=== PATIENT | male | born 1950 | race Caucasian/White ===

== ENCOUNTER → 2023-11-01 06:50 | Outpatient (REF) | payer MEDICARE, SELFPAY ==
[2023-11-01 10:39] LABS: PSA, Total - Diagnostic 3.53 ng/ml (0.0-4.0)
== END ==
LOC: HWLAB 06:50
PROVIDERS: ATTENDING PHYSICIAN Specialist; FAMILY PHYSICIAN Internal Medicine
DX: R97.20 Elevated prostate specific antigen [PSA] (principal)
CPT/HCPCS: 36415; 84153

== ENCOUNTER → 2024-02-21 07:35 | Outpatient (REF) | payer MEDICARE, SELFPAY | LOC: DHVS 07:35 | PROVIDERS: ATTENDING PHYSICIAN Surgery Vascular Surgery; FAMILY PHYSICIAN Internal Medicine | DX: I77.9 Disorder of arteries and arterioles, unspecified (principal) | CPT/HCPCS: 93922; 93925 ==

== ENCOUNTER → 2024-06-01 07:52 | Outpatient (REF) | payer MEDICARE, SELFPAY ==
[2024-06-01 10:08] LABS: ALT (SGPT) 33 U/L (0-50); AST (SGOT) 30 U/L (17-59); Albumin 4.1 g/dl (3.5-5.0); Alkaline Phosphatase 53 U/L (38-126); Blood Urea Nitrogen 51 mg/dl (9-20); Calcium 9.9 mg/dl (8.4-10.2); Carbon Dioxide 24 mmol/L (22-30); Chloride 101 mmol/L (98-107); Glucose 120 mg/dl (70-99); HDL Cholesterol 31 mg/dl; LDL Cholesterol, Calculated 49 mg/dl; Potassium 4.1 mmol/L (3.5-5.1); Sodium 138 mmol/L (135-145); Total Bilirubin 0.5 mg/dl (0.2-1.3); Total Cholesterol 115 mg/dl (50-199); Total Protein 6.6 g/dl (6.3-8.2); Triglyceride 176 mg/dl (10-149); Very Low Density Lipoprotein 35 mg/dl (0-30); eGFR 38.53
[2024-06-01 10:47] LABS: Microalbumin/creatinine Ratio 8.2 mg/g
[2024-06-01 12:17] LABS: Glycohemoglobin (HgbA1c) 7.1 % (4.0-5.6)
== END ==
LOC: HWLAB 07:52
PROVIDERS: ATTENDING PHYSICIAN Internal Medicine
DX: E11.59 Type 2 diabetes mellitus with other circulatory complications (principal)
CPT/HCPCS: 36415; 80053; 80061; 82043; 82570; 83036

== ENCOUNTER → 2024-08-22 08:40 | Outpatient (REF) | payer MEDICARE, SELFPAY | LOC: RAD 08:40 | PROVIDERS: ATTENDING PHYSICIAN Surgery Vascular Surgery; FAMILY PHYSICIAN Internal Medicine | DX: I73.9 Peripheral vascular disease, unspecified (principal) | CPT/HCPCS: 93922; 93925 ==

== ENCOUNTER → 2024-11-03 07:32 | Outpatient (REF) | payer MEDICARE, SELFPAY | LOC: RAD 07:32 | PROVIDERS: ATTENDING PHYSICIAN Registered Nurse; FAMILY PHYSICIAN Internal Medicine | DX: I73.9 Peripheral vascular disease, unspecified (principal) | CPT/HCPCS: 93922; 93925 ==

== ENCOUNTER → 2024-11-13 06:58 | Outpatient (REF) | payer MEDICARE, SELFPAY ==
[2024-11-13 09:47] LABS: ALT (SGPT) 55 U/L (0-50); AST (SGOT) 40 U/L (17-59); Albumin 4.5 g/dl (3.5-5.0); Alkaline Phosphatase 55 U/L (38-126); Blood Urea Nitrogen 42 mg/dl (9-20); Calcium 10.1 mg/dl (8.4-10.2); Carbon Dioxide 27 mmol/L (22-30); Chloride 105 mmol/L (98-107); Glucose 129 mg/dl (70-99); HDL Cholesterol 29 mg/dl; LDL Cholesterol, Calculated 62 mg/dl; Potassium 4.3 mmol/L (3.5-5.1); Sodium 143 mmol/L (135-145); Total Bilirubin 0.6 mg/dl (0.2-1.3); Total Cholesterol 133 mg/dl (50-199); Total Protein 7.1 g/dl (6.3-8.2); Triglyceride 212 mg/dl (10-149); Very Low Density Lipoprotein 42 mg/dl (0-30); eGFR 47.95
[2024-11-13 09:55] LABS: Microalbumin, Random Urine 0.7 mg/dl (0.6-1.7); Microalbumin/creatinine Ratio 7.3 mg/g
[2024-11-13 10:37] LABS: Glycohemoglobin (HgbA1c) 7.5 % (4.0-5.6)
== END ==
LOC: HWLAB 06:58
PROVIDERS: ATTENDING PHYSICIAN Internal Medicine
DX: E11.59 Type 2 diabetes mellitus with other circulatory complications (principal); I10 Essential (primary) hypertension
CPT/HCPCS: 36415; 80053; 80061; 82043; 82570; 83036

== ENCOUNTER 2024-12-04 06:49 | Day surgery (SDC) | payer MEDICARE, SELFPAY ==
[2024-12-04] VITALS (20 sets, daily range): BP systolic 89–151; BP diastolic 64–87; BMI 30.3
[2024-12-04 07:29] LABS: Glucose - Point of Care 141 mg/dl (70-99)
[2024-12-04 07:30] LABS: Hematocrit 42.2 % (39.0-52.0); Hemoglobin 14.2 g/dL (13.0-18.0); Mean Corp Hgb Conc. 33.6 g/dL (33.0-37.0); Mean Corpuscular Hgb 30.3 pg (27.0-31.0); Mean Corpuscular Volume 90.2 fL (80.0-94.0); Mean Platelet Volume 9.1 fL (7.4-10.4); Platelet Count 260 10^3/uL (130-400); Red Blood Cell Count 4.68 10^6/uL (4.70-6.10); Red Cell Dist. Width 12.3 % (11.5-14.5); White Blood Cell Count 8.6 10^3/uL (4.8-10.8)
--- NOTE | 2024-12-04 07:34 | W.SUR.PREOP ---
Pre-Operative Surgical Note
-
I have examined this patient prior to the performance of the scheduled procedure.
The patient's condition is unchanged from the time of the current History and
Physical and the patient is able to undergo the scheduled procedure.
[2024-12-04 07:40] LABS: INR 1.03; PT 13.8 Sec (11.4-14.6)
[2024-12-04 07:46] LABS: Blood Urea Nitrogen 30 mg/dl (9-20); Calcium 10.2 mg/dl (8.4-10.2); Carbon Dioxide 25 mmol/L (22-30); Chloride 108 mmol/L (98-107); Estimated Creatinine Clearance 56 ml/min; Glucose 144 mg/dl (70-99); Potassium 4.4 mmol/L (3.5-5.1); Sodium 142 mmol/L (135-145); eGFR 56.93
--- NOTE | 2024-12-04 09:32 | W.IMMPOSTOP ---
Surgical Immed Post Op Note
-
Primary Surgeon: Evelia
Assisting Surgeon: Fozia
Pre-op Diagnosis: R pop stent occlusion
Post-op Diagnosis: R pop stent occlusion
Procedure Performed: IVL/precinct police captain/stent right pop
Anesthesia Type: Sedation/local
Specimen / Cultures: None
Estimated Blood Loss: <20 cc
Complications: None
Operative Findings: Successful ivl/precinct police captain/stent right pop
--- NOTE | 2024-12-04 09:33 | OR.RPT ---
Operative Report
Operative Report
Date of Operation: 12/04/2024
Pre Op Diagnosis: Peripheral arterial occlusive disease with new segmental occlusion of right lower extremity popliteal artery stent
Post Op Diagnosis: Peripheral arterial occlusive disease with new segmental occlusion of right lower extremity popliteal artery stent
Procedure:
1.) Intravascular lithotripsy to calcified stenosis/occlusion of right popliteal artery stent (6 mm x 80 mm E8 shockwave balloon)
2.) Balloon angioplasty and stenting of right above-knee popliteal artery (6 mm x 5 cm Viabahn stent graft)
3.) Diagnostic aortobiiliac arteriogram
4.) Diagnostic right lower extremity arteriogram
5.) Ultrasound-guided percutaneous access to the left common femoral artery
Surgeon: Jone Altamirano III, MD
Membership Sales Representative: Shirin Marcelo MD PGY1
Anesthesia: Sedation with local
Fluoroscopy:
24.4 min
185 mGy
61.59 gy.cm2
Complications: None
Estimated Blood Loss: Less than 20 cc
History and Indications for Procedure: 74-year-old male with previous right lower extremity endovascular intervention. Recurrence of claudication symptoms. On surveillance duplex imaging he had segmental occlusion of his right popliteal artery
stents.
Procedure in Detail: Jayy Orta was correctly identified and placed supine on the operating table. After adequate induction of anesthesia the bilateral groins were prepped and draped in the usual sterile fashion. A timeout was performed with
the nursing and anesthesia staff confirming the patient's identity as well as the nature and laterality of the procedure.
The left common femoral artery was identified under ultrasound guidance. The artery was patent with some calcified plaque identified. The superior and inferior aspects of the femoral head were identified with radiographic guidance and marked at the
skin level. The proposed puncture site was infiltrated with local anesthesia. Under ultrasound guidance we accessed the left common femoral artery with a micropuncture needle and upsized to a 5 Fr sheath over a Issuuson wire. The wire and a Shepherds
hook flush catheter were advanced into the distal abdominal aorta and a diagnostic aorto-biiliac arteriogram was performed:
AORTO-ILIAC ARTERIOGRAM:
Aorta: Peripherally calcified. Patent with no stenosis identified
Right common iliac artery: Patent with no stenosis identified
Right external iliac artery: Patent with no stenosis identified
Left common iliac artery: Patent with no stenosis identified
Left external iliac artery: Patent with no stenosis identified
Under roadmap guidance using a Glidewire and the [employer] hook catheter we selected the right common iliac artery and then the external iliac artery. A catheter was tracked up and over the aortic bifurcation and placed in the distal external iliac
artery. A diagnostic right lower extremity arteriogram was then performed which demonstrated the following:
RIGHT LOWER EXTREMITY:
Common femoral artery: Patent with no stenosis identified
Profunda femoral artery: Patent with no stenosis identified
Superficial femoral artery: Patent with no stenosis identified
Popliteal artery: Stents identified in the above-knee popliteal segment and behind the knee. Segmental occlusion of stents above the knee popliteal artery. Significant calcification identified. Reconstitution of the popliteal artery behind and
below the knee.
Anterior tibial artery: Patent
Tibioperoneal trunk: Patent
Peroneal artery: Patent
Posterior tibial artery: Patent
ENDOVASCULAR INTERVENTION: Systemic heparin was administered. Exchanged out for a 6 Fr 45 cm sheath over a Storq wire. Selected the superficial femoral artery under roadmap guidance with Quickcross catheter and glidewire. Navigated through the SFA
to the popliteal artery stents. The popliteal stent occlusion was crossed with a Quickcross and Glidewire. The wire and catheter were advanced into the popliteal artery below the knee and subtraction angio confirmed proper position in the true
lumen. Exchanged out for a 0.018 wire. A 5 mm x 60 mm angioplasty balloon was placed across the occlusion under roadmap guidance. The balloon was inflated to nominal pressure and then deflated and removed over the wire. Subsequent arteriogram
demonstrated significant residual stenosis with a boulder of dense calcified plaque outside of the existing stent causing extrinsic compression on the stent focally. Due to the heavily calcified nature of the popliteal artery disease and in an
effort to modify the calcium to achieve maximum luminal gain with endovascular intervention I elected to proceed with intravascular lithotripsy. Exchanged out for a 0.[address] wire. A 6 mm x 80 mm Shockwave balloon was placed across the
stenosis under roadmap guidance. Alternating rounds of lithotripsy pulse delivery at sub-nominal pressure and angioplasty at nominal pressure was performed across the stenosis. In between rounds of pulse delivery and angioplasty the balloon was
deflated and repositioned under roadmap guidance. All 400 pulses were delivered. Subsequent arteriogram demonstrated improvement in luminal flow but residual plaque and stenosis remained. I then brought into position a 6 mm x 5 cm Viabahn stent
graft and positioned this across the residual stenosis under roadmap guidance. The stent was deployed and the delivery system removed over the wire. A 6 mm angioplasty balloon was used to aggressively profile the entire length of the Viabahn stent
graft at rated burst pressure.
COMPLETION ARTERIOGRAM: Good technical result. Patent popliteal artery stents with brisk flow. Mild residual stenosis identified in an area of dense calcification at the point of previous stent occlusion. Patent three-vessel tibial runoff.
Satisfied with this result we concluded the procedure. The sheath tip was pulled back into the left external iliac artery. The wire was removed. Protamine was administered. The sheath was secured in place with a plan to pull it in the recovery
area.
The patient tolerated the procedure well and was taken to the recovery area in stable condition.
Attestation: I was present and responsible for the entire procedure.
Signed:
Jone Altamirano III, MD
Vascular Surgery
[facility]
[2024-12-04 09:54] LABS: Glucose - Point of Care 127 mg/dl (70-99)
[2024-12-04] MEDS: NSS 1000 IV (10:57)
[2024-12-04 12:05] LABS: Glucose - Point of Care 83 mg/dl (70-99)
== END 2024-12-04 15:07 | disposition home or self-care (01) ==
LOC: CATH 06:49
PROVIDERS: ATTENDING PHYSICIAN Surgery Vascular Surgery; OTHER PHYSICIAN Student in an Organized Health Care Education/Training Program; PRIMARYCARE PHYSICIAN Internal Medicine
DX: I70.211 Atherosclerosis of native arteries of extremities with intermittent claudication, right leg (principal); T82.856D Stenosis of peripheral vascular stent, subsequent encounter; Y83.8 Other surgical procedures as the cause of abnormal reaction of the patient, or of later complication, without mention of misadventure at the time of the procedure; Z87.891 Personal history of nicotine dependence; Z95.820 Peripheral vascular angioplasty status with implants and grafts; I25.10 Atherosclerotic heart disease of native coronary artery without angina pectoris; E11.9 Type 2 diabetes mellitus without complications; Z79.02 Long term (current) use of antithrombotics/antiplatelets; Z79.82 Long term (current) use of aspirin; Z79.84 Long term (current) use of oral hypoglycemic drugs; Z79.899 Other long term (current) drug therapy; Z79.85 Long-term (current) use of injectable non-insulin antidiabetic drugs
CPT/HCPCS: C9765; 75625; 75716; 80048; 82962; 85027; 85610; C1725; C1769; C1874; C1894; Q9967

== ENCOUNTER → 2024-12-28 14:16 | Outpatient (REF) | payer MEDICARE, SELFPAY | LOC: RAD 14:16 | PROVIDERS: ATTENDING PHYSICIAN Surgery Vascular Surgery; FAMILY PHYSICIAN Internal Medicine | DX: I73.9 Peripheral vascular disease, unspecified (principal) | CPT/HCPCS: 93922; 93925 ==

== ENCOUNTER → 2025-04-17 08:59 | Outpatient (REF) | payer MEDICARE, SELFPAY | LOC: HWRCS 08:59 | PROVIDERS: ATTENDING PHYSICIAN Student in an Organized Health Care Education/Training Program; FAMILY PHYSICIAN Internal Medicine | DX: I35.0 Nonrheumatic aortic (valve) stenosis (principal) | CPT/HCPCS: 93306 ==

== ENCOUNTER → 2025-05-16 07:40 | Outpatient (REF) | payer MEDICARE, SELFPAY ==
[2025-05-16 10:30] LABS: Glycohemoglobin (HgbA1c) 6.8 % (4.0-5.6)
[2025-05-16 10:41] LABS: Microalb - Urine Creatinine 143.000 mg/dl
[2025-05-16 10:43] LABS: ALT (SGPT) 45 U/L (0-50); AST (SGOT) 44 U/L (17-59); Albumin 4.2 g/dl (3.5-5.0); Alkaline Phosphatase 38 U/L (38-126); Blood Urea Nitrogen 23 mg/dl (9-20); Calcium 10.2 mg/dl (8.4-10.2); Carbon Dioxide 25 mmol/L (22-30); Chloride 107 mmol/L (98-107); Glucose 135 mg/dl (70-99); HDL Cholesterol 31 mg/dl; LDL Cholesterol, Calculated 67 mg/dl; Potassium 4.6 mmol/L (3.5-5.1); Sodium 139 mmol/L (135-145); Total Protein 7.0 g/dl (6.3-8.2); Very Low Density Lipoprotein 35 mg/dl (0-30); eGFR 44.10
[2025-05-16 10:44] LABS: Microalbumin, Random Urine 2.5 mg/dl (0.6-1.7)
== END ==
LOC: HWLAB 07:40
PROVIDERS: ATTENDING PHYSICIAN Internal Medicine
DX: E11.59 Type 2 diabetes mellitus with other circulatory complications (principal); I10 Essential (primary) hypertension
CPT/HCPCS: 36415; 80053; 80061; 82043; 82570; 83036

== ENCOUNTER → 2025-05-29 14:31 | Outpatient (REF) | payer MEDICARE, SELFPAY | LOC: DHVS 14:31 | PROVIDERS: ATTENDING PHYSICIAN Surgery Vascular Surgery; FAMILY PHYSICIAN Internal Medicine | DX: I73.9 Peripheral vascular disease, unspecified (principal) | CPT/HCPCS: 93922; 93925 ==

== ENCOUNTER 2025-06-15 06:42 | Day surgery (SDC) | payer MEDICARE, SELFPAY ==
[2025-06-06 09:41] VITALS: BMI 31.3
[2025-06-15] VITALS (20 sets, daily range): BP systolic 102–142; BP diastolic 66–94
[2025-06-15 08:21] LABS: Glucose - Point of Care 161 mg/dl (70-99)
[2025-06-15 09:24] LABS: Glucose - Point of Care 152 mg/dl (70-99)
[2025-06-15 10:59] LABS: Glucose - Point of Care 145 mg/dl (70-99)
--- NOTE | 2025-06-15 15:54 | OR.RPT ---
Operative Report
Operative Report
Date of Operation: 06/15/2025
Pre Op Diagnosis:
1. Debilitating left lower extremity claudication
2. Occluded left superficial femoral artery/popliteal artery stents
Post Op Diagnosis:
1. Debilitating left lower extremity claudication
2. Occluded left superficial femoral artery/popliteal artery stents
Procedure:
1. Selective catheterization of third order lower extremity artery
2. Diagnostic aortobiiliac arteriogram
3. Diagnostic left lower extremity arteriogram
4. Ultrasound-guided percutaneous access to the right common femoral artery
Surgeon: Jone Altamirano III, MD
Search Lead: Shirin Marcelo MD PGY2
Anesthesia: Sedation with local
Fluoroscopy:
4.4 min
69 mGy
26.16 gy.cm2
Complications: None
Estimated Blood Loss: Less than 20 cc
History and Indications for Procedure: 75-year-old male with debilitating left lower extremity claudication and preoperative vascular lab studies indicating occluded stents in the superficial femoral artery and popliteal artery. He was brought to
the operating room for endovascular interrogation.
Procedure in Detail: Jayy Orta was correctly identified and placed supine on the operating table. After adequate induction of anesthesia the bilateral groins were prepped and draped in the usual sterile fashion. A timeout was performed with
the nursing and anesthesia staff confirming the patient's identity as well as the nature and laterality of the procedure.
The right common femoral artery was identified under ultrasound guidance. The artery was patent. The superior and inferior aspects of the femoral head were identified with radiographic guidance and marked at the skin level. The proposed puncture
site was infiltrated with local anesthesia. Under ultrasound guidance we accessed the right common femoral artery with a micropuncture needle and upsized to a 5 Fr sheath over a Bentson wire. The wire and a ShepherStratasan hook flush catheter were
advanced into the distal abdominal aorta and a diagnostic aorto-biiliac arteriogram was performed:
AORTO-ILIAC ARTERIOGRAM:
Aorta: Patent with no stenosis identified
Right common iliac artery: Patent with no stenosis identified
Right external iliac artery: Patent with no stenosis identified
Left common iliac artery: Patent with no stenosis identified
Left external iliac artery: Patent with no stenosis identified
Under roadmap guidance using a Glidewire and the ShepherStratasan hook catheter we selected the left common iliac artery followed by the external iliac artery and then the common femoral artery. A catheter was tracked up and over the aortic bifurcation and
placed in the common femoral artery. A diagnostic left lower extremity arteriogram was then performed which demonstrated the following:
LEFT LOWER EXTREMITY:
Common femoral artery: Patent. Calcified plaque identified without significant stenosis
Profunda femoral artery: Patent with no significant stenosis identified. Robust distal branch network.
Superficial femoral artery: Proximal and mid section patent. Bulky calcified plaque in the proximal aspect. Occluded stents in the distal SFA as it transitions to the above-knee popliteal artery.
Popliteal artery: Occluded above the knee and behind the knee stents. Reconstitutes below the knee. Focal calcified plaque in the distal below-knee popliteal artery spanning the AT origin contributing to significant stenosis
Anterior tibial artery: Calcified plaque spanning the origin of the anterior tibial artery creating high-grade stenosis. The artery is patent otherwise without significant stenosis and continues into the foot to form the dorsalis pedis artery.
Tibioperoneal trunk: Patent with no stenosis identified
Peroneal artery: Patent but sluggish flow compared to anterior tibial and posterior tibial arteries
Posterior tibial artery: Patent. No significant stenosis identified. Continues across the ankle to form plantar branches in the foot
Satisfied with this diagnostic information we concluded the procedure. The catheter was pulled from the 5 Bengali sheath. This sheath was secured in place with plan to pull it in the recovery area.
The patient tolerated the procedure well and was taken to the recovery area in stable condition.
Attestation: I was present and responsible for the entire procedure.
Signed:
Jone Altamirano III, MD
Vascular Surgery
[facility]
== END 2025-06-15 15:00 | disposition home or self-care (01) ==
LOC: CATH 06:42
PROVIDERS: ATTENDING PHYSICIAN Surgery Vascular Surgery; OTHER PHYSICIAN Student in an Organized Health Care Education/Training Program; PRIMARYCARE PHYSICIAN Internal Medicine
DX: E11.51 Type 2 diabetes mellitus with diabetic peripheral angiopathy without gangrene (principal); I70.212 Atherosclerosis of native arteries of extremities with intermittent claudication, left leg; Z79.84 Long term (current) use of oral hypoglycemic drugs; Z79.85 Long-term (current) use of injectable non-insulin antidiabetic drugs
CPT/HCPCS: 36247; 75710; 75625; 82962; 93970; C1769; C1894; Q9967